=== PATIENT | female | born 1960 | race African-American/Black ===

== ENCOUNTER 2017-02-06 08:21 | Observation (INO) ==
[2017-02-06 09:20] LABS: Apearance,Urine CLEAR (Clear); Bilirubin,Urine Negative (Negative); Blood, Urine Negative (Negative); Glucose,Urine (UA) Negative (Negative); Ketones,Urine Negative (Negative); Mucus,Urine Occasional /LPF (Occasional); Nitrite,Urine Negative (Negative); Protein,Urine Negative; RBC,Urine <1 /HPF (0-4); Urine Color Yellow (Yellow); Urine Specific Gravity 1.011 (1.001-1.035); Urine Urobilinogen < 2.0 EU/DL (0.2-1.0); WBC,Urine <1 /HPF (0-6)
[2017-02-06] MEDS ORDERED: KETOROLAC 30 MG/1 ML VIAL IV STA (09:52)
[2017-02-06] MEDS ORDERED: ONDANSETRON 4 MG/2 ML VIAL IV STA (09:52)
[2017-02-06] MEDS ORDERED: ALUM/MAG/SIMETH/LIDO VISC 1:1 30 ML BOTTLE PO STA (09:52)
[2017-02-06] MEDS ORDERED: PANTOPRAZOLE 40 MG VIAL IV STA (09:52)
[2017-02-06] MEDS ORDERED: HYDROmorphone 2 MG/1 ML VIAL IV STA (09:52)
[2017-02-06] MEDS ORDERED: SODIUM CHLORIDE 0.9% 1,000 ML IV STA (09:52)
--- NOTE | 2017-02-06 10:08 | Emergency Department Note ---
Jonathan Lopes Emily, am scribing for, and in the presence of, Jose D Blake MD 10: 00. Lou Lopes Charles R, MD, personally performed the services described in this documentation, ascribed by Janee Castillo in my presence, and it is both accurate and complete . Arrival - Arrival Chief Complaint: Abdominal / Flank Pain Stated Complaint: lower abd and back pain ED Nursing Triage Note: c/o right flank pain onset this am. +increased urination. +nausea/vomiting. Denies fever. Last bowel movement yesterday-- diarrhea. Mode of Arrival: Ambulatory Limitations: No Limitations Source: Patient Time Seen by Provider: 02/06/17 09:16 - History of Present Illness HPI Narrative: Pt is a 56 y/o female who came to ED with c/o right lower flank pain that started suddenly this morning. Pt has associated sxs of N/V, frequency, diarrhea but denies fever, hematuria, or DM. Pt denies hx of kidney stones. PMHx of HTN, GERD, Vertigo. Onset (ago): hour(s) Consistency: constant Severity: mild Severity scale (1-10): 3 Quality: aching Date of Last Menstrual Period: PM Allergies/Adverse Reactions: Allergies Allergy/AdvReac Type Severity Reaction Status Date / Time guaifenesin [From Entex LA] AdvReac Dizziness Verified 02/06/17 08:28 phenylephrine [From Entex LA] AdvReac Dizziness Verified 02/06/17 08:28 phenylpropanolamine AdvReac Dizziness Verified 02/06/17 08:28 [From Entex LA] Review of System - Review of System 12 point system: reviewed and no additional remarkable complaints except as stated - Review of System Constitutional: Absent: chills, fever Respiratory: Absent: respiratory distress Cardiovascular: Absent: chest pain Gastrointestinal: Present: nausea, vomiting, diarrhea. Absent: abdominal pain, hematemesis, melena Genitourinary female: Present: frequency. Absent: hematuria Musculoskeletal: Present: lower back pain (right lower side). Absent: arm pain , leg pain, neck pain Skin: Absent: rash Neurological: Absent: headache Medical,Surgical,& Family Hx - Medical History Cardio: History of: Hypertension Neurology: History of: Vertigo Gastrointestinal: History of: GERD - Family History Family History: noncontributory - Social History Smoking Status: Never smoker Frequency of Alcohol Use: None Type of Drug Use: None Marital Status: Single Lives With:: Alone Functional capacity: independent ambulation Exam Vital Signs: Vital Signs Temperature 97.6 F 02/06/17 08:46 Pulse Rate 85 02/06/17 08:46 Respiratory Rate 20 02/06/17 08:46 Blood Pressure 135/94 02/06/17 08:46 O2 Sat by Pulse Oximetry 98 02/06/17 08:23 - General General appearance: alert, in no apparent distress - Head Head exam: Present: atraumatic, normocephalic - Eye Eye exam: Present: PERRL, EOMI - ENT ENT exam: Present: mucous membranes moist. Absent: mucous membranes dry - Neck Neck exam: Present: full ROM, trachea midline - Chest Chest inspection: Present: symmetric chest wall rise - Respiratory Respiratory exam: Present: normal lung sounds bilaterally. Absent: respiratory distress - Cardiovascular Cardiovascular exam: Present: tachycardia, normal heart sounds - Abdominal Exam Abdominal exam: Present: soft, tenderness (RLQ). Absent: distention, guarding, rebound - Extremities Exam Extremities exam: Present: full ROM. Absent: tenderness, pedal edema - Back Exam Back exam: Present: full ROM, CVA tenderness (R) (right lower flank pain) - Neurological Exam Neurological exam: Present: alert, oriented X3, CN II-XII intact. Absent: motor sensory deficit - Psychiatric Psychiatric exam: Present: normal affect, normal mood - Skin Skin exam: Present: warm, dry Course - Consultations Consultation #1: Dr. Martinez since surgery but he will was called and aware of the acute appendicitis Time: 11:50 Results - Labs CBC & BMP: 02/06/17 10:13 02/06/17 10:13 - Diagnostic Findings Procedure: CT Abdomen and Pelvis: image reviewed by me, report reviewed by me ( Acute uncomplicated appendicitis) Disposition Clinical Impression: Abdominal pain, Acute appendicitis Case discussed with: patient, patient's family Disposition: Still a Patient Condition: Stable Time of Disposition: 11:51
[2017-02-06 10:19] LABS: Eosinophils % 0.6 % (0.00-10.9); Hematocrit 41.2 VOL% (35.7-47.0); Hemoglobin 14.1 GM/DL (12.0-16.0); Immature Granulocytes % 0.3 %; Immature Granulocytes Absolute 0.02 #; Lymphocytes # 1.4 10*3/uL (1.4-4.0); Lymphocytes % 21.5 % (21.3-54.2); Mean Corpuscular HGB Conc 34.2 GM/DL (32-36); Mean Corpuscular Hemoglobin 30 PG (27-34); Mean Corpuscular Volume 86.2 FL (87-102); Monocytes # 0.4 10*3/uL (0.11-0.8); Monocytes % 6.7 % (1.7-12.7); Neutrophils # 4.7 10*3/uL (1.4-7.4); Neutrophils % 70.9 % (38.7-73.9); Platelet Count 218 T/CUMM (130-400); Red Blood Count 4.78 MC/CUMM (3.8-5.5); Red Cell Distribution Width 13.2 % (9.3-17.3); White Blood Count 6.6 T/CUMM (4-12)
[2017-02-06] MEDS ORDERED: ONDANSETRON 4 MG/2 ML VIAL ONE ×2 (10:49→13:50)
[2017-02-06] MEDS ORDERED: PANTOPRAZOLE 40 MG VIAL IV ONE (10:49)
[2017-02-06] MEDS ORDERED: KETOROLAC 30 MG/1 ML VIAL ONE (10:50)
[2017-02-06] MEDS ORDERED: HYDROmorphone 2 MG/1 ML VIAL ONE (10:50)
[2017-02-06] MEDS ORDERED: ALUM/MAG/SIMETH/LIDO VISC 1:1 30 ML BOTTLE PO ONE (10:50)
[2017-02-06 10:59] LABS: Alanine Aminotransferase 19 U/L (13-56); Albumin 3.3 G/DL (3.4-5.0); Alkaline Phosphatase 71 U/L (45-117); Amylase 18 U/L (25-115); Aspartate Amino Transferase 18 U/L (0-37); Blood Urea Nitrogen 11 MG/DL (7-18); Calcium 8.6 MG/DL (8.5-10.1); Glucose 100 MG/DL (74-106); Magnesium 2.1 MG/DL (1.8-2.4); Osmolality,Calculated 279.3 MOS/KG (273-304); Potassium 3.6 MMOL/L (3.5-5.1); Sodium 141 MMOL/L (136-145); Total Protein 7.1 G/DL (6.4-8.3); Troponin I Only < 0.015 NG/ML (0.00-0.045)
--- NOTE | 2017-02-06 11:16 | XRay Report ---
Exam: XR chest 1V portable Date: 02/06/2017 9:52 AM Indication: Abdominal pain Comparison: 07/15/2014 Technical: AP Findings: Mild prominence the cardiac silhouette. Mild interstitial edema and shunt vascularity. No obvious consolidations present. A few small nodes are present mediastinum. The bony structures are intact. Previous cholecystectomy clips are present. Impression: 1. Mild cardiomegaly with very minimal interstitial edema 2. Previous cholecystectomy 3. Small calcified nodes in the mediastinum PROCEDURE INTERPRETED AT [facility] DEPARTMENT OF RADIOLOGY Final Report Signed by: Dr. Hany Pendleton
--- NOTE | 2017-02-06 11:20 | CT Report ---
Exam: CT abdomen and pelvis with intravenous contrast Exam date: February 06, 2017 at 1027 hours Clinical History: 56-year-old female with abdominal and pelvic pain, radiating into the right flank Technique: Axial computed tomography images of the abdomen and pelvis with intravenous contrast. All CT scans at this facility use one or more dose reduction techniques. Automated exposure control, MA/KV adjustment per patient size (including targeted exam Square dose is matched to indication) or iterative reconstruction technique Contrast: 100 mL of Omnipaque 350 administered intravenously Comparison: No relevant prior studies Findings: Lower thorax: Prominence of the left heart chambers. No acute pathologic findings at the lung bases Abdomen: Liver: Unremarkable note is made of tiny hypodensity within the right hepatic lobe, too small to characterize and likely represents benign cyst Gallbladder and bile ducts: Prior cholecystectomy with mild prominence of the central hepatic ducts and dilatation of the common bile duct tapers normally to the ampulla Pancreas: Pancreas is normal. Spleen: Spleen is normal. Adrenals: No adrenal mass. Kidneys and ureters: Symmetric enhancement of the kidneys. 8.0 cm cystic mass arising from the interpolar region of the right kidney No hydronephrosis. No ureteral calculus. Stomach and bowel: No evidence of acute gastritis, colitis or enteritis. No bowel obstruction. Moderate stool dispersed throughout the colon. Appendix: Dilated appendix with mucosal enhancement and periappendiceal inflammatory changes. No evidence abscess formation or perforation.. Pelvis: Bladder: Unremarkable Reproductive: Unremarkable as visualized. Abdomen and pelvis: Intraperitoneal space: No pneumoperitoneum. No significant intraperitoneal fluid. Periappendiceal inflammatory changes extending cephalad along the right paracolic gutter Bones/joints: No acute osseous abnormality Soft tissues: No mass Vasculature: No aortic aneurysm Lymph nodes: Scattered prominent right lower quadrant lymph nodes, likely reactive Impression: 1. Acute, uncomplicated appendicitis 2. Other incidental findings as discussed above PROCEDURE INTERPRETED AT [facility] DEPARTMENT OF RADIOLOGY Final Report Signed by: Mauri Matthews
--- NOTE | 2017-02-06 11:22 | XRay Report ---
Exam: XR abdomen 2V Date: 02/06/2017 9:52 AM Comparison: None Indication: Abdominal pain Findings: Lung bases are unremarkable. The liver and spleen are partially obscured Renal contours are obscured Previous cholecystectomy clips are present. The bony structures are demonstrated with some heterotopic calcification adjacent to the greater trochanteric region left hip No obvious pneumoperitoneum Nonspecific GI pattern. Contrast is present in the bladder from recent CT imaging Impression: 1. Previous cholecystectomy 2. Nonspecific GI pattern PROCEDURE INTERPRETED AT [facility] DEPARTMENT OF RADIOLOGY Final Report Signed by: Dr. Hany Pendleton
[2017-02-06] MEDS ORDERED: PIPERACILLIN/TAZOBACTAM 3,375 MG in SODIUM CHLORIDE 0.9% 100 ML IV STA (11:47)
[2017-02-06] MEDS ORDERED: PIPERACILLIN/TAZOBACTAM 3,375 MG VIAL IV ONE (12:31)
--- NOTE | 2017-02-06 12:54 | General Surg History&Physical ---
Assessment and Plan (1) Acute appendicitis Status: Acute Assessment and plan: This patient has CT proven acute appendicitis. I recommended laparoscopic appendectomy to the patient but have discussed the risk, benefits, and alternatives including medical management. I discussed the failure rate of 25% with antibiotics alone but did offer this to the patient. She would like to proceed with the operation. This will be done shortly Current Visit: Yes History of Present Illness Chief complaint: Abdominal pain History of present illness: Ms. Watts is a 56 year old female who presents to the ER with abdominal pain. She was evaluated with lab work and CT scan as well as x-rays of the abdomen and chest. She had acute appendicitis with no evidence of perforation or abscess on her CT scan and I was consulted for management. The patient has had a laparoscopic cholecystectomy and no other abdominal surgery. She has no cardiopulmonary comorbidities that she knows of. Home Medications Medication Instructions Recorded Confirmed Type Acetaminophen Tab [Tylenol Tab] 1,000 mg PO BEDTIME 02/06/17 02/06/17 History Amlodipine Besylate [Amlodipine 10 mg PO QAM 02/06/17 02/06/17 History Besylate] Aspirin EC Tab 81 mg PO QPM 02/06/17 02/06/17 History hydroCHLOROthiazide 25 mg PO QAM 02/06/17 02/06/17 History [Hydrochlorothiazide] Allergies Allergy/AdvReac Type Severity Reaction Status Date / Time guaifenesin [From Entex LA] AdvReac Dizziness Verified 02/06/17 08:28 phenylephrine [From Entex LA] AdvReac Dizziness Verified 02/06/17 08:28 phenylpropanolamine AdvReac Dizziness Verified 02/06/17 08:28 [From Entex LA] Medical,Surgical,& Family Hx - Medical History Cardio: History of: Hypertension Neurology: History of: Vertigo Gastrointestinal: History of: GERD - Social History Smoking Status: Never smoker Frequency of Alcohol Use: None Type of Drug Use: None Exam - Constitutional Vitals: Period Temp Pulse Resp BP Sys/Lacy Pulse Ox Last 24 Hr 97.6 F-97.6 F 85-85 20-20 135-181/94-126 98 General appearance: no acute distress, morbidly obese - Head Head exam: Present: normal inspection, normocephalic - Eye Eye exam: Present: EOMI Pupils: Present: MALA - ENT ENT exam: Present: normal exam Mouth exam: Present: normal external inspection, normal voice - Neck Neck exam: Present: normal inspection, trachea midline - Respiratory Respiratory exam: Present: clear to auscultation bilaterally. Absent: accessory muscle use, chest wall tenderness - Cardiovascular Cardiovascular exam: Present: RRR. Absent: systolic murmur, tachycardia - GI/Abdominal GI/Abdominal exam: Present: tenderness (There is focal tenderness in the right lower quadrant. The patient recently received pain medication and feels a little bit of relief afterwards. There are no diffuse peritoneal signs.), soft - Extremities Exam Extremities exam: Present: normal inspection, normal capillary refill - Back Exam Back exam: Present: normal inspection - Neurological Exam Neurological exam: Present: alert, oriented X3 Speech: Present: normal - Skin Skin exam: Present: normal color, warm - Constitutional Constitutional: Present: as per HPI - EENT Nose, mouth and throat: Present: as per HPI - Cardiovascular Cardiovascular: Present: as per HPI - Respiratory Respiratory: Present: as per HPI - Gastrointestinal Gastrointestinal: Present: as per HPI - Genitourinary Genitourinary: Present: as per HPI - Musculoskeletal Musculoskeletal: Present: as per HPI - Neurological Neurological: Present: as per HPI - Endocrine Endocrine: Present: as per HPI Hematologic/Lymphatic: Present: as per HPI Results - Labs CBC & BMP: 02/06/17 10:13 02/06/17 10:13 - Diagnostic Findings Procedure: CT Abdomen and Pelvis: image reviewed by me, report reviewed by me ( Acute nonperforated appendicitis uncomplicated)
[2017-02-06] MEDS ORDERED: BUPIVACAINE MPF 0.25% /EPI 30 ML VIAL ONE (13:09)
[2017-02-06] MEDS ORDERED: LIDOCAINE 1%/EPI INJ 20 ML VIAL ONE (13:09)
[2017-02-06] MEDS ORDERED: TISSUE ADHESIVE 1 EACH APPLICATOR TOP ONE (13:10)
[2017-02-06] MEDS ORDERED: LIDOCAINE 2% 5 ML VIAL ONE (13:50)
[2017-02-06] MEDS ORDERED: DEXAMETHASONE 4 MG/1 ML VIAL ONE (13:50)
[2017-02-06] MEDS ORDERED: SUCCINYLCHOLINE 200 MG/10 ML VIAL ONE (13:50)
[2017-02-06] MEDS ORDERED: NEOSTIGMINE 10 MG/10 ML VIAL ONE (13:50)
[2017-02-06] MEDS ORDERED: ROCURONIUM 100 MG/10 ML VIAL IV ONE (13:50)
[2017-02-06] MEDS: LACTATED RINGERS 1,000 ML IV SCH ×4 (13:50→22:13)
[2017-02-06] MEDS ORDERED: GLYCOPYRROLATE 0.4 MG/2 ML VIAL ONE (13:50)
[2017-02-06] MEDS ORDERED: PROPOFOL 200 MG/20 ML VIAL IV ONE (13:50)
--- NOTE | 2017-02-06 15:17 | Operative Note ---
Date of procedure: 02/06/17 Pre-op diagnosis: Acute appendicitis Post-op diagnosis: same Procedure: Preoperative diagnosis Acute appendicitis Postoperative diagnosis Same Procedures performed Laparoscopic appendectomy Findings Acute nonperforated appendicitis Blood loss 5 mL Anesthesia GETA Complications None apparent Specimen Appendix Indications Acute appendicitis. I discussed the option of medical treatment with antibiotics alone with the patient in detail. I discussed the failure rate of 25% with antibiotics alone and the requirement to stay in the hospital for several days of antibiotics and observation. The patient decided to proceed with laparoscopic appendectomy. I discussed the risks, benefits, and alternatives of the operation with the patient, and the expected outcomes were reviewed. In particular, I discussed the risk of bleeding, infection, wound complications, bowel obstruction, and ureteral injury. The patient elects to proceed with the operation. Description of procedure The patient was taken to the operating room and transferred to the operating table in the supine position. Pressure points were padded and SCDs were placed to bilateral lower extremities. General endotracheal anesthesia was administered. The abdominal hair was clipped with electric clippers and the abdomen was prepped with chlorhexidine and draped sterilely. Preoperative antibiotics were administered, and a timeout was performed. The abdomen was entered in the supraumbilical location in the right paramedian position with a Veress needle. Local anesthetic was administered and a 12 mm skin incision was made with an 11 blade scalpel. Penetrating towel clips were used to grasp the abdominal wall skin and a Veress needle was used into the peritoneal cavity. Intra-peritoneal location was confirmed with a double click technique. Aspiration was negative. Saline drop test confirmed intraperitoneal location. The abdomen was insufflated to 15 mmHg with initial insufflation pressure of 7 mmHg. The Veress needle was removed and a 12 mm trocar was placed bluntly. Diagnostic laparoscopy was then performed. There was no evidence of Veress needle or trocar injury. The patient was placed in Trendelenburg and left side rolled down position. Under direct visualization, and after local anesthetic was administered, 2 additional 5 mm trochars were placed in the suprapubic position in the left lower quadrant position. The bowel was then moved out of the right lower quadrant and the appendix was visualized. The appendix was curled into a pigtail orientation around the cecum and had to be freed up on its adhesions in order to allow visualization of the base of the appendix to create a window for staple placement. The appendix was grasped and retracted towards the patient's feet in a window in the appendiceal mesentery was created with [place] dissector. SANDEEP stapler was then used to transect the base of the appendix. The appendiceal mesentery was also divided using vascular staple loads.. The right lower quadrant was focally suction irrigated. This was done until the effluent was clear. The appendix was placed in Endo Catch bag and removed through the 12 mm trocar site. The CO2 was then released from the abdomen and the trochars were removed. Skin incisions were closed with 4-0 Monocryl and sterile skin glue was applied. The patient was awakened from anesthesia and transferred to recovery. Postoperative plan Diet as tolerated Follow-up in 2 weeks Anesthesia: EVELYN, local Surgeon / Physician: Bradly Martinez Estimated blood loss: minimal Specimens: other (Appendix) Condition: stable Disposition: PACU Results - Labs CBC & BMP: 02/06/17 10:13 02/06/17 10:13 Discharge Plan - Discharge Data Disposition: Still a Patient - Discharge Medications No Action Aspirin EC Tab 81 mg PO QPM Amlodipine Besylate [Amlodipine Besylate] 10 mg PO QAM hydroCHLOROthiazide [Hydrochlorothiazide] 25 mg PO QAM Acetaminophen Tab [Tylenol Tab] 1,000 mg PO BEDTIME - Follow Up or Referral Follow Up: Bradly Martinez MD [Physician] - 24-48 Hrs if not improved - Forms/Instructions Instructions: Laparoscopic Appendectomy (DC)
[2017-02-06] MEDS ORDERED: HYDROmorphone 2 MG/1 ML VIAL IV PRN ×2 (15:35→16:28)
[2017-02-06] MEDS ORDERED: ONDANSETRON 4 MG/2 ML VIAL IV PRN ×2 (15:35→16:28)
[2017-02-06] MEDS: hydrALAZINE 20 MG/1 ML VIAL IV SCH ×2 (15:45→16:42)
--- NOTE | 2017-02-06 16:18 | Anesthesia Post-Op ---
Anesthesia Post OP - Post Ansesthetic Evaluation Patient seen in post op: Yes Resp: within normal limits CV: within normal limits Mental: within normal limits Temp: within normal limits [id number]: within normal limits Nausea and Vomiting: within normal limits Pain: within normal limits
[2017-02-06] MEDS ORDERED: SEVOFLURANE 1 UNIT/15 MINUTE INH ONE (16:27)
[2017-02-06] MEDS ORDERED: LACTATED RINGERS 1,000 ML IV ONE (16:27)
[2017-02-06] MEDS ORDERED: MIDAZOLAM 2 MG/2 ML VIAL ONE (16:27)
[2017-02-06] MEDS ORDERED: fentaNYL 100 MCG/2 ML VIAL ONE (16:27)
[2017-02-06] MEDS ORDERED: PROMETHAZINE 25 MG/1 ML VIAL IM PRN (16:28)
[2017-02-06] MEDS: KETOROLAC 15 MG/1 ML VIAL IV SCH ×2 (16:45→22:12)
[2017-02-06] MEDS ORDERED: ePHEDrine 50 MG/ML AMP ONE (16:55)
[2017-02-06] MEDS ORDERED: ASPIRIN EC 81 MG TABLET PO SCH (19:00)
[2017-02-07] MEDS: KETOROLAC 15 MG/1 ML VIAL IV SCH ×2 (05:04→09:35)
[2017-02-07] MEDS: LACTATED RINGERS 1,000 ML IV SCH (06:22)
[2017-02-07] MEDS ORDERED: ENOXAPARIN 40 MG/0.4 ML SYRINGE SUBCUT SCH (09:00)
[2017-02-07] MEDS ORDERED: amLODIPine 10 MG TABLET PO SCH (09:00)
--- NOTE | 2017-02-07 09:14 | Discharge Summary ---
Hospital Course - Hospital Course Hospital Course: The patient was admitted for treatment of acute appendicitis and was treated with laparoscopic appendectomy. She did well overnight and tolerated her diet and was discharged home the following day. Diagnosis - Discharge Diagnosis (1) Acute appendicitis Status: Acute Specialty Discharge - Follow Up or Referrals Follow up with: Bradly Martinez MD [Physician] - 24-48 Hrs if not improved Discharge Plan - Discharge Data Disposition: Disch To Home/Self Care Condition at Discharge: Stable Discharge Diet: advance to your usual diet Activity: no lifting Hygiene: may shower Weight Bearing at Discharge: weight bear as tolerated Driving: other (Do not drive or operate heavy machinery for at least 24 hours and after you are off of narcotic pain medications.) Contact your physician if you experience:: fever over 101, Difficulty voiding, Redness or swelling, Nausea/Vomiting, Shortness of breath, Bleeding, pain uncontrolled by pain medications Wound / Dressing Care Instructions: It is okay to shower. Do not scrub the incision aggressively or submerge it under water. - Discharge Medications New HYDROcodone/ACETAMIN 7.5-325 [[place] 7.5-325] 1 tablet PO Q4H PRN #20 tablet PRN Reason: Pain Moderate (4-7) Continue Aspirin EC Tab 81 mg PO QPM Amlodipine Besylate 10 mg PO QAM hydroCHLOROthiazide [Hydrochlorothiazide] 25 mg PO QAM Discontinued Acetaminophen Tab [Tylenol Tab] 1,000 mg PO BEDTIME - Follow Up or Referral Follow Up: Bradly Martinez MD [Physician] - 24-48 Hrs if not improved - Forms/Instructions Instructions: Laparoscopic Appendectomy (DC) Exam - Constitutional Vitals: Period Temp Pulse Resp BP Sys/Lacy Pulse Ox Last 24 Hr 97.0 F-98.9 F 59-93 16-20 100-178/58-106 93-100 General appearance: no acute distress, morbidly obese - Head Head exam: Present: normal inspection, normocephalic - Eye Eye exam: Present: EOMI Pupils: Present: MALA - ENT ENT exam: Present: normal exam - Neck Neck exam: Present: normal inspection - Respiratory Respiratory exam: Present: clear to auscultation bilaterally. Absent: accessory muscle use, chest wall tenderness - Cardiovascular Cardiovascular exam: Present: regular rate and rhythm. Absent: systolic murmur , tachycardia - GI/Abdominal GI/Abdominal exam: Present: normal bowel sounds, tenderness (The abdomen is appropriately tender postoperatively. The incisions are clean and dry.), soft. Absent: distended - Extremities Exam Extremities exam: Present: normal inspection, normal capillary refill - Back Exam Back exam: Present: normal inspection - Neurological Exam Neurological exam: Present: alert, oriented X3 - Psychiatric Psychiatric exam: Present: normal affect, normal mood - Skin Skin exam: Present: normal color, warm Discharge Results Labs on day of discharge: Labs from last 24 hours 02/06/17 02/06/17 02/06/17 10:25 10:13 10:13 WBC 6.6 RBC 4.78 Hgb 14.1 Hct 41.2 MCV 86.2 L MCH 30 MCHC 34.2 RDW 13.2 Plt Count 218 MPV 10.0 Neut % (Auto) 70.9 Lymph % (Auto) 21.5 [place] % (Auto) 6.7 Eos % (Auto) 0.6 Baso % (Auto) 0.0 Neut # (Auto) 4.7 Lymph # (Auto) 1.4 [place] # (Auto) 0.4 Eos # (Auto) 0.0 Baso # (Auto) 0.0 Immature Gran % 0.3 Nucleated RBC % 0.0 Immature Gran # 0.02 Nucleated RBCs # 0.00 Immature Plt Fraction 0.0 Sodium 141 Potassium 3.6 Chloride 106 Carbon Dioxide 28 Anion Gap 10.6 BUN 11 Creatinine 0.50 L POC Creatinine 0.59 GFR Calculation 153 POC Estimated GFR (eGFR) > 60 BUN/Creatinine Ratio 22.00 H Glucose 100 Calculated Osmolality 279.3 Calcium 8.6 Magnesium 2.1 Total Bilirubin 0.40 AST 18 ALT 19 Alkaline Phosphatase 71 Troponin I < 0.015 Total Protein 7.1 Albumin 3.3 L Globulin 3.8 H Albumin/Globulin Ratio 0.8 L Amylase 18 L Lipase 94.0 Urine Color Urine Appearance Urine pH Ur Specific Rebuck Urine Protein Urine Glucose (UA) Urine Ketones Urine Blood Urine Nitrate Urine Bilirubin Urine Urobilinogen Urine Leukocytes Urine RBC Urine WBC Urine Mucus Ur Culture Indicated? 02/06/17 09:00 WBC RBC Hgb Hct MCV MCH MCHC RDW Plt Count MPV Neut % (Auto) Lymph % (Auto) [place] % (Auto) Eos % (Auto) Baso % (Auto) Neut # (Auto) Lymph # (Auto) [place] # (Auto) Eos # (Auto) Baso # (Auto) Immature Gran % Nucleated RBC % Immature Gran # Nucleated RBCs # Immature Plt Fraction Sodium Potassium Chloride Carbon Dioxide Anion Gap BUN Creatinine POC Creatinine GFR Calculation POC Estimated GFR (eGFR) BUN/Creatinine Ratio Glucose Calculated Osmolality Calcium Magnesium Total Bilirubin AST ALT Alkaline Phosphatase Troponin I Total Protein Albumin Globulin Albumin/Globulin Ratio Amylase Lipase Urine Color Yellow Urine Appearance Clear Urine pH 7.0 Ur Specific [place] 1.011 Urine Protein Negative Urine Glucose (UA) Negative Urine Ketones Negative Urine Blood Negative Urine Nitrate Negative Urine Bilirubin Negative Urine Urobilinogen < 2.0 H Urine Leukocytes Negative Urine RBC <1 Urine WBC <1 Urine Mucus Occasional Ur Culture Indicated? Not indicated DS: Provider Date of admission: 02/06/17 15:17 Primary care physician: . No PCP Attending physician on admission: Bradly Martinez MD Consults: 02/06/17 12:51 Consult to Anesthesiology [CONS] Routine Consulting Provider: Reason for Anesthesiology: Pre-op Clearance Discharging clinician: Bradly Martinez MD Expected date of discharge: 02/07/17
[2017-02-07 11:03] VITALS: BP 122/67
--- NOTE | 2017-02-09 09:17 | Pathology Report from [facility] ---
[facility] [place] ACCESSION # : [id number] PATIENT NAME : Tania Watts ORDERING DR : Bradly Martinez MD CLINICAL HX: Acute appendicitis POST-OP DX: Same SPECIMEN INFO: Appendix GROSS DESCRIPTION: Received in formalin labeled TANIA WATTS is an appendix with attached mesoappendix measuring 7.8 x up to 1.2 cm and khalil su. There is a fibrinous exudate at the distal portion of the appendix. The lumen is patent containing slightly thickened hemorrhagic material. No fecaliths or perforations are identified. Box Sorter sections are submitted in one cassette. DIAGNOSIS FOR TANIA WATTS: APPENDIX, APPENDECTOMY: Acute necrotizing appendicitis. COLLECTED DATE: 02/07/2017 [facility] [place] REPORT DATE: 02/08/2017 ELECTRONICALLY SIGNED BY: Brinda Winters M.D. 02/08/2017 - 11:52:53 [facility]
== END 2017-02-07 12:57 | disposition home or self-care (01) ==
LOC: N.3E 08:21 → N.ED 08:21
PROVIDERS: ADMIT Surgery; ATTEND Surgery